=== PATIENT | female | born 1975 | race African-American/Black ===

== ENCOUNTER 2017-02-07 20:36 | Emergency (ER) | payer BC ==
[~2017-02-07] VITALS: Ht 160 cm; Wt 148.3 kg
--- NOTE | ~2017-02-07 | CR72 ---
[facility] A Service of [facility] RADIOLOGY TEXT RESULTS PATIENT: KENNY HANNA LOCATION: [facility] : 77 UNIT #: [id number] AGE: [address]: Gregory Dawkins MD SEX: F ORDER DR: [id number] [facility] [address] [place], [place] [address] [id number] E MR#: [id number] #: [id number] NAME: KENNY HANNA : 1975 SEX: F STUDY DATE/TIME: 02/07/2017 22:28 UNIT: [facility] ROOM: STUDY DESCRIPTION: CR Chest Single View Portable Attending Physician: Gregory Dawkins M.D. Ordering Physician: Gregory Dawkins M.D. Primary Care Physician: No Primary Care Physician MEDICAL IMAGING REPORT This report is preliminary unless electronic signature is present EXAM Portable chest, 02/07/2017. HISTORY 41-year-old female with shortness of air and cough for 3 days. COMPARISON Chest, 12/07/2012. FINDINGS Frontal chest demonstrates clear lungs. No pleural effusion or pneumothorax. Heart size and mediastinum are normal. Pulmonary vasculature normal. IMPRESSION No acute cardiopulmonary findings. Dictated by... Levy Casper M.D. THIS IS AN ELECTRONICALLY VERIFIED REPORT Levy Casper M.D. at 02/08/2017 10:06 AM ROSETTA/tobias TD: 02/08/2017 05:59 JOB #: [id number] MEDICAL IMAGING REPORT Page 1 of 1 COPY
--- NOTE | ~2017-02-07 | EKG ---
PATIENT: KENNY HANNA UNIT #: [id number] Ventricular Rate: 82 BPM Atrial Rate: 82 BPM P-R Interval: 166 ms QRS Duration: 86 ms Q-T Interval: 370 ms QTC Calculation(Bezet): 432 ms P Paradise: 35 degrees Calculated R Paradise: -18 degrees Calculated T Paradise: 0 degrees Diagnosis Line: Normal sinus rhythm Diagnosis Line: Minimal voltage criteria for LVH, may be normal Diagnosis Line: variant Diagnosis Line: Cannot rule out Anterior infarct , age Diagnosis Line: undetermined Diagnosis Line: Abnormal ECG Diagnosis Line: When compared with ECG of 05-JUN-2013 22:03, Diagnosis Line: No significant change was found Diagnosis Line: Confirmed by YODIT SHERIDAN MD ([id number]) on Diagnosis Line: 02/08/2017 7:34:07 AM INTERPRETING MD: FATIMAH STEPHENSON
[~2017-02-07 20:36] MED LIST: ATARAX PO; HYDROCHLOROTHIA25 MG PO; K-DUR20 ME1 PO
[2017-02-07 22:31] LABS: BASOPHIL% 0.6 % (0-2.5); DIFF IND NO; EOSINOPHIL% 0.6 % (0.0-7.0); HEMATOCRIT 38.9 % (35.0-45.0); HEMOGLOBIN 12.7 gm/dL (12.0-16.0); LYMPHOCYTE# 0.9 X10e3 (1.0-3.5); LYMPHOCYTE% 17.9 % (17.0-45.0); MEAN CELL VOLUME 86.1 FL (83-96); MEAN CORPUSCULAR HGB CONC 32.5 g/dL (30-36); MONOCYTE# 0.4 X10e3 (0-1.0); MONOCYTE% 7.6 % (3.0-12.0); NEUTROPHIL# 3.6 X10e3 (1.5-7.1); NEUTROPHIL% 73.3 % (40-75); PLATELET COUNT 243 X10e3 (140-420); RED BLOOD COUNT 4.52 X10e (3.90-5.30); WHITE BLOOD COUNT 4.9 X10e3 (4.0-10.5)
[2017-02-07 22:42] LABS: POC - CKMB <1.0 ng/mL (0.0-7.9); POC - TROPONIN <0.05 ng/mL (<=0.05)
[2017-02-07 22:53] LABS: ALBUMIN SERUM 3.6 g/dL (3.5-5.0); ALKALINE PHOSPHATASE 50 U/L (32-92); ALT (SGPT) 12 U/L (10-40); AST (SGOT) 16 U/L (10-42); BILIRUBIN,TOTAL 0.8 mg/dL (0.2-2.0); BLOOD UREA NITROGEN 9 mg/dL (9-23); BUN/CREATININE RATIO 12.85; CALCIUM SERUM 8.7 mg/dL (8.4-10.2); CARBON DIOXIDE 24 mmol/L (22-31); CHLORIDE 102 mmol/L (100-111); CREATININE SERUM 0.7 mg/dL (0.6-1.4); GLOM FILT RATE Estimated 125.6 mL/min (>60); GLUCOSE FASTING 89 mg/dL (70-110); POTASSIUM 3.4 mmol/L (3.5-5.1); PROTEIN TOTAL SERUM 8.1 g/dL (6.0-8.3); SODIUM 132 mmol/L (135-145)
[2017-02-07 22:59] LABS: BILIRUBIN, DIRECT <0.1 mg/dL (0.0-0.2); BILIRUBIN,INDIRECT 0.7 mg/dL (0.0-0.9)
[2017-02-08 00:24] LABS: POC - CKMB <1.0 ng/mL (0.0-7.9); POC - TROPONIN <0.05 ng/mL (<=0.05)
== END 2017-02-08 00:36 | disposition home or self-care (01) ==
LOC: CED 20:36
PROVIDERS: Emergency Medicine
DX: J02.9 Acute pharyngitis, unspecified (principal); I10 Essential (primary) hypertension; Z88.8 Allergy status to other drugs, medicaments and biological substances; Z91.041 Radiographic dye allergy status; Z91.14 Patient's other noncompliance with medication regimen
CPT/HCPCS: 36415; 71010; 80048; 80076; 82553; 83880; 84484; 84703; 85025; 87651; 93005; 99285